=== PATIENT | male | born 1950 | race American Indian/Alaskan Native ===

== ENCOUNTER 2017-03-23 09:53 | Inpatient (IN) | payer MEDICARE ==
--- NOTE | 2017-03-23 11:04 | Emergency Department Report ---
HPI - General Chief Complaint: Medical Clearance Time Seen by Provider: 03/23/17 10:47 - HPI HPI: This is a 24-year-old Afro-[place] male presents to the emergency department by EMS from home with complaint of some transient strokelike symptoms. The patient says that about 845 AM this morning he was trying to open a pill bottle and was unable to do so. He started having paresthesias in the left hand and felt like his left arm became weak. After this he started having bilateral hand tremors and complained of some confusion. By the time EMS arrived about one hour later he had regained all strength and was back at his baseline. During that time he was able to call his fiance who suggested he called EMS. He did not take anything for symptoms prior to presentation. He has a primary care doctor named Dr. Berry. His past medical history includes diabetes, hypertension and hepatitis C with previous liver transplant. Recent travel or sick contacts at home. He denies any history of OH, CVA, PE/DVT. ED Past Medical Hx - Past Medical History Previous Medical History?: Yes Hx Hypertension: Yes Hx Diabetes: Yes Additional medical history: Hepatitis C liver transplant anemia - Surgical History Past Surgical History?: Yes Additional Surgical History: liver transplant - Social History Smoking Status: Never Smoker Substance Use Type: None - Medications Home Medications: Home Medications Medication Instructions Recorded Confirmed Last Taken Type Aspirin [Aspirin BABY CHEW TAB] 81 mg PO DAILY 01/17/14 03/23/17 03/22/17 History Metoprolol [Lopressor TAB] 25 mg PO BID 01/17/14 03/23/17 03/22/17 History Sirolimus [Rapamune] 2 mg PO QAM 01/17/14 03/23/17 03/22/17 History AtorvaSTATin [Lipitor] 20 mg PO DAILY 03/23/17 03/23/17 03/22/17 History Calcium Carbonate/Vitamin D3 600 - 800 mg PO DAILY 03/23/17 03/23/17 03/22/17 History [Calcium 600-Vit D3 800 Tablet] Esomeprazole Magnesium [NexIUM] 40 mg PO QDAY 03/23/17 03/23/17 03/22/17 History Glimepiride [Amaryl] 2 mg PO QAM 03/23/17 03/23/17 03/22/17 History Lisinopril [Zestril] 20 mg PO QDAY 03/23/17 03/23/17 03/22/17 History ED Review of Systems ROS: Stated complaint: POSS TIA Other details as noted in HPI Comment: All other systems reviewed and negative Constitutional: denies: chills, fever Eyes: denies: eye pain, eye discharge, vision change ENT: denies: ear pain, throat pain Respiratory: denies: cough, shortness of breath, wheezing Cardiovascular: denies: chest pain, palpitations Gastrointestinal: denies: abdominal pain, nausea, diarrhea Genitourinary: denies: urgency, dysuria Musculoskeletal: denies: back pain, joint swelling, arthralgia Skin: denies: rash, lesions Neurological: weakness, paresthesias, confusion Physical Exam - Physical Exam Vital Signs: Vital Signs 03/23/17 03/23/17 03/23/17 10:01 10:02 10:03 Temperature Pulse Rate 87 88 Respiratory 14 20 Rate Blood Pressure 130/82 130/82 O2 Sat by Pulse 94 95 Oximetry 03/23/17 03/23/17 10:07 10:09 Temperature 98.4 F Pulse Rate Respiratory 20 Rate Blood Pressure O2 Sat by Pulse 95 Oximetry Physical Exam: GENERAL: The patient is well-developed well-nourished. HEENT: Normocephalic. Atraumatic. Extraocular motions are intact. Patient has moist mucous membranes. Pupils equal reactive to light bilaterally. No nystagmus. NECK: Supple. Trach is midline. CHEST/LUNGS: Clear to auscultation. There is no respiratory distress noted. HEART/CARDIOVASCULAR: Regular. There is no tachycardia. There is no gallop rub or murmur. ABDOMEN: Abdomen is soft, nontender. Patient has normal bowel sounds. There is no abdominal distention. SKIN: There is no rash. There is no edema. There is no diaphoresis. NEURO: The patient is awake, alert, and oriented. The patient is cooperative. The patient has no focal neurologic deficits. The patient has normal speech. Cranial nerves II through XII grossly intact. No pronator drift. No dysmetria. MUSCULOSKELETAL: There is no tenderness or deformity. There is no limitation range of motion. There is no evidence of acute injury. Muscle strength 5 out of 5 for upper and lower [place] bilaterally. Cap refill less than 2 seconds. ED Course Vital Signs 03/23/17 03/23/17 03/23/17 10:01 10:02 10:03 Temperature Pulse Rate 87 88 Respiratory 14 20 Rate Blood Pressure 130/82 130/82 O2 Sat by Pulse 94 95 Oximetry 03/23/17 03/23/17 10:07 10:09 Temperature 98.4 F Pulse Rate Respiratory 20 Rate Blood Pressure O2 Sat by Pulse 95 Oximetry ED Medical Decision Making - Lab Data Result diagrams: 03/23/17 11:25 03/23/17 11:25 - EKG Data -: EKG Interpreted by Me EKG shows normal: sinus rhythm, axis, intervals, QRS complexes, ST-T waves Rate: normal - EKG Data When compared to previous EKG there are: previous EKG unavailable Interpretation: normal EKG - Radiology Data Radiology results: report reviewed CT of the head does not show any acute process including no hemorrhage, mass, shift, diffuse edema or skull fracture. - Medical Decision Making 66-year-old male presents after having some strokelike and/or TIA like symptoms this morning. Upon presentation the patient is awake and alert without any focal, motor or sensory deficits and says he is back at his baseline. He had a CT of the head that did not show any bleed, shift, mass or any acute process. EKG is normal without ST elevation OH, ischemia or dysrhythmia. Patient's labs are mostly unremarkable, however the patient has an elevated first troponin. There is no renal insufficiency. It is still possible that the patient had a TIA but with an elevated troponin in the patient being diabetic it is possible that he had some type of atypical cardiac event that caused his symptoms. Patient will be admitted to the hospital for serial troponins and further evaluation and has been accepted for admission by the hospitalist, Dr. Poole. - Differential Diagnosis TIA, CVA, brain bleed, OH Critical Care Time: No Critical care attestation.: If time is entered above; I have spent that time in minutes in the direct care of this critically ill patient, excluding procedure time. ED Disposition Clinical Impression: Elevated troponin, Paresthesias Diabetes Qualifiers: Diabetes mellitus type: type 1 Diabetes mellitus complication status: with unspecified complications Qualified Code(s): E10.8 - Type 1 diabetes mellitus with unspecified complications HTN (hypertension) Qualifiers: Hypertension type: essential hypertension Qualified Code(s): I10 - Essential ( primary) hypertension Disposition: OP ADMITTED IP TO THIS HOSP Is pt being admited?: Yes Condition: Stable Instructions: Diabetes Mellitus Type 2 in Adults (ED) Referrals: PRIMARY CARE, [Primary Care Provider] - 3-5 Days Time of Disposition: 14:38
--- NOTE | 2017-03-23 11:28 | Cat Scan Report ---
CT HEAD WITHOUT CONTRAST: HISTORY: Dizziness. Serial contiguous axial images were obtained through the cranium. Intravenous contrast material was not administered. The ventricles are normal in size and appearance. There is no mass effect or midline shift. No areas of abnormally increased or decreased attenuation are seen. No mass lesion is seen. The mastoid air cells and visualized portions of the sinuses are normal. IMPRESSION: Cranial CT scan within normal limits.
[2017-03-23 11:47] LABS: Basophils % (Auto) 0.8 % (0.0-1.8); Eosinophils % (Auto) 1.5 % (0.0-4.3); Hematocrit 37.8 % (35.5-45.6); Hemoglobin 12.4 gm/dl (11.8-15.2); Mean Corpuscular HGB Conc 33 % (32-34); Mean Corpuscular Volume 78 fl (84-94); Platelet Count 256 K/mm3 (140-440); Red Blood Count 4.83 M/mm3 (3.65-5.03); White Blood Count 8.3 K/mm3 (4.5-11.0)
[2017-03-23 11:55] LABS: Mean Corpuscular Hemoglobin 26 pg (28-32)
[2017-03-23 12:00] LABS: Alanine Aminotransferase 39 units/L (7-56); Albumin 3.7 g/dL (3.9-5); Albumin/Globulin Ratio 1.4 %; Alkaline Phosphatase 168 units/L (35-129); Anion Gap 17 mmol/L; BUN/Creatinine Ratio 20.71; Bilirubin,Total 0.3 mg/dL (0.1-1.2); Blood Urea Nitrogen 29 mg/dL (9-20); Calcium 9.1 mg/dL (8.4-10.2); Carbon Dioxide 24 mmol/L (22-30); Chloride 106.5 mmol/L (98-107); Glucose 53 mg/dL (75-100); Potassium 4.1 mmol/L (3.6-5.0); Sodium 143 mmol/L (137-145); Total Protein 6.3 g/dL (6.3-8.2)
[2017-03-23 12:11] LABS: Cholesterol 197 mg/dL (50-199); HDL Cholesterol 50 mg/dL (40-59); LDL Cholesterol,Direct 117 mg/dL (50-130); Triglycerides 150 mg/dL (2-149)
--- NOTE | 2017-03-23 12:27 | Admit Criteria Form ---
Admission Criteria Documentation: STROKE: ISCHEMIC Clinical Indications for Admission to Inpatient Care (Place 'X' for any and all applicable criteria): Admission is indicated for ANY ONE of the following(1)(2)(3)(4): [X ]I. Acute stroke Extended stay beyond goal length of stay may be needed for(1)(2) [ ]a) Major deficit or clinical deterioration [ ]b) Hospital-acquired infection (eg, urinary tract infection, pneumonia) [ ]c) Embolic cause of stroke [ ]d) Venous thromboembolism(9) [ ]e) Seizures [ ]f) Bleeding (eg, cerebral) [ ]g) Increased intracranial pressure [ ]h) Comorbidities [ ]i) Surgical intervention The original [facility] content created by [employer] has been revised. The portions of the content which have been revised are identified through the use of italic text or in bold, and [facility] [employer] has neither reviewed nor approved the modified material. All other unmodified content is copyright [facility]. Please see references footnoted in the original [facility] edition 2016 Admission Criteria Met: Yes
--- NOTE | 2017-03-23 12:32 | History and Physical Report ---
History of Present Illness Chief complaint: My left side is weak History of present illness: 66 YO Male with DM, HTN, HCV S/P liver Transplant presents to ED for evaluation. Pt states that he experienced left sided weakness this morning around 0845 hrs. Pt states that he was attempting to open a bottle of pills but did not have the strength to do so. Pt states that his left arm and hand were weak, and he was unable to do anything with his left hand and arm. Pt subsequently became confused. EMS notified. Pt states that symptoms totally resolved prior to EMS arrival. Pt denies fever, chills, CP, Palpitations, NVD, syncope, vertigo, headache, seizures, head trauma, loss of bowel or bladder continence, prolonged travel, immobility, individual/family history of DVT/PE, leg pain, calf pain, cough, or recent ill contacts. Past History Past Medical History: diabetes, hepatitis, hypertension Past Surgical History: Other (liver transplant) Social history: . denies: smoking, alcohol abuse, prescription drug abuse Family history: diabetes, hypertension Medications and Allergies Allergies Allergy/AdvReac Type Severity Reaction Status Date / Time No Known Allergies Allergy Unverified 09/29/13 13:59 Home Medications Medication Instructions Recorded Confirmed Last Taken Type Aspirin [Aspirin BABY CHEW TAB] 81 mg PO DAILY 01/17/14 03/23/17 03/22/17 History Metoprolol [Lopressor TAB] 25 mg PO BID 01/17/14 03/23/17 03/22/17 History Sirolimus [Rapamune] 2 mg PO QAM 01/17/14 03/23/17 03/22/17 History AtorvaSTATin [Lipitor] 20 mg PO DAILY 03/23/17 03/23/17 03/22/17 History Calcium Carbonate/Vitamin D3 600 - 800 mg PO DAILY 03/23/17 03/23/17 03/22/17 History [Calcium 600-Vit D3 800 Tablet] Esomeprazole Magnesium [NexIUM] 40 mg PO QDAY 03/23/17 03/23/17 03/22/17 History Glimepiride [Amaryl] 2 mg PO QAM 03/23/17 03/23/17 03/22/17 History Lisinopril [Zestril] 20 mg PO QDAY 03/23/17 03/23/17 03/22/17 History Review of Systems All systems: negative Constitutional: weakness Exam - Constitutional Vitals: Temp Pulse Resp BP Pulse Ox 98.4 F 72 17 133/77 98 03/23/17 10:07 03/23/17 11:00 03/23/17 11:00 03/23/17 11:00 03/23/17 11:00 General appearance: Present: no acute distress, well-nourished - EENT Eyes: Present: PERRL ENT: hearing intact, clear oral mucosa - Neck Neck: Present: supple, normal ROM - Respiratory Respiratory effort: normal Respiratory: bilateral: CTA - Cardiovascular Heart Sounds: Present: S1 & S2. Absent: rub, click - Extremities Extremities: pulses symmetrical, No edema Peripheral Pulses: within normal limits - Abdominal General gastrointestinal: Present: soft, non-tender, non-distended, normal bowel sounds Male genitourinary: Present: normal - Integumentary Integumentary: Present: clear, warm, dry - Musculoskeletal Musculoskeletal: gait normal, strength equal bilaterally - Psychiatric Psychiatric: appropriate mood/affect, intact judgment & insight - Neurologic Neurologic: CNII-XII intact, moves all extremities Results - Labs CBC & Chem 7: 03/23/17 11:25 03/23/17 11:25 Labs: Abnormal lab results 03/23/17 03/23/17 Range/Units 11:25 11:25 MCV 78 L (84-94) fl MCH 26 L (28-32) pg [place] % (Auto) 8.9 H (0.0-7.3) % Seg Neutrophils % 74.5 H (40.0-70.0) % BUN 29 H (9-20) mg/dL Glucose 53 L (75-100) mg/dL Alkaline Phosphatase 168 H (35-129) units/L Troponin T 0.044 H (0.00-0.029) ng/mL Albumin 3.7 L (3.9-5) g/dL Triglycerides 150 H (2-149) mg/dL Assessment and Plan - Patient Problems (1) CVA (cerebral vascular accident) Current Visit: Yes Status: Acute Qualifiers: CVA mechanism: C Precerebral and cerebral artery: P Laterality of affected vessel: L Plan to address problem: Stroke Protocol: MRI/MRA brain, Echo, carotid doppler, PT/OT/Speech therapy. (2) Diabetes Current Visit: Yes Status: Acute Qualifiers: Diabetes mellitus type: D Diabetes mellitus complication status: D Diabetes mellitus complication detail: D Diabetic retinopathy severity: D Proliferative retinopathy type: P Diabetes mellitus macular edema: D Diabetes mellitus assisted insulin use: D Laterality: L Chronic kidney disease stage: C Plan to address problem: ADA diet, insulin, accu check (3) HTN (hypertension) Current Visit: Yes Status: Acute Qualifiers: Hypertension type: H Plan to address problem: Monitor bp q shift, resume current therapy (4) DVT prophylaxis Current Visit: Yes Status: Acute
[2017-03-23] MEDS ORDERED: TYLENOL PO PRN ×3 (12:34→12:58)
[2017-03-23] MEDS ORDERED: ZOFRAN IV PRN ×2 (12:34→12:39)
[2017-03-23] MEDS ORDERED: MILK OF MAGNESIA PO PRN ×2 (12:34→12:39)
[2017-03-23] MEDS ORDERED: DULCOLAX PR PRN ×2 (12:34→12:39)
[2017-03-23] MEDS ORDERED: REGLAN PO PRN (12:39)
[2017-03-23] MEDS ORDERED: D50W (25GM) IV PRN (12:39)
[2017-03-23] MEDS ORDERED: SODIUM CHLORIDE FLUSH SYRINGE 10 ML IV PRN (12:39)
[2017-03-23] MEDS ORDERED: PHENERGAN PR PRN (12:39)
--- NOTE | 2017-03-23 15:33 | Magnetic Resonance Report ---
MRI of the brain without contrast. History: Stroke. Procedure: Routine brain protocol without contrast. Findings: The posterior fossa is normal. The ventricles are normal in size and contour there are no masses or extra-axial collections. There are bilateral areas of hyperintense T2 and flair signal in the periventricular white matter, fairly symmetrical in distribution. There is no restricted diffusion. The pituitary gland is normal. The visualized extra cranial structures are unremarkable. Impression: No acute findings. Chronic periventricular microangiopathic changes are noted.
--- NOTE | 2017-03-23 15:35 | Magnetic Resonance Report ---
MRA of the [place]. History: Stroke. Procedure: 3-D [id number] technique. Findings: The visualized distal internal carotid arteries appear normal. The anterior and middle cerebral arteries appear normal. The vertebral and basilar arteries are patent. Posterior cerebral arteries are unremarkable. There is no evidence of aneurysm or AVM. Impression: Negative study.
[2017-03-23] MEDS: NOVOLOG SUB-Q SCH ×2 (18:01→21:37)
[2017-03-23] MEDS: DUONEB 0.5 MG-3 MG/3 ML SOLN IH SCH ×2 (18:35→21:45)
[2017-03-23] MEDS: LOPRESSOR PO SCH (21:34)
[2017-03-23] MEDS ORDERED: ZOCOR PO SCH (22:00)
[2017-03-24] MEDS: DUONEB 0.5 MG-3 MG/3 ML SOLN IH SCH ×3 (02:04→13:22)
[2017-03-24 08:34] VITALS: BP 141/82
[2017-03-24] MEDS: NOVOLOG SUB-Q SCH (08:39)
[2017-03-24 09:09] LABS: Creatine Kinase MB 1.2 ng/mL (0.0-4.0)
[2017-03-24] MEDS: LOPRESSOR PO SCH (09:41)
[2017-03-24] MEDS ORDERED: BABY ASPIRIN PO SCH (10:00)
[2017-03-24] MEDS ORDERED: PROTONIX PO SCH (10:00)
[2017-03-24] MEDS ORDERED: RAPAMUNE PO SCH ×2 (10:00→11:00)
[2017-03-24] MEDS ORDERED: SIROLIMUS 2 MG PO SCH (10:00)
[2017-03-24] MEDS ORDERED: NON-FORMULARY (Esomeprazole Magnesium [Nexium] 40 MG) PO SCH (10:00)
[2017-03-24] MEDS ORDERED: ZESTRIL PO SCH (10:00)
--- NOTE | 2017-03-24 10:33 | Discharge Summary ---
Providers - Providers Date of Admission: 03/23/17 12:35 Date of discharge: 03/24/17 Attending physician: JOSAFAT SHABAZZ 03/23/17 12:39 Occupational Therapy Evaluate and Treat [CONS] Routine Comment: Reason For Exam: Neuro deficits Physical Therapy Evaluation and Treat [CONS] Routine Comment: Reason For Exam: Neuro deficits 03/23/17 12:41 Speech Therapy Evaluation and Treat [CONS] Routine Reason For Exam: swallow eval 03/24/17 09:32 Consult to Physician [CONS] Routine Consulting Provider: SHARYN LEAL Reason For Exam: Elevated Troponin Place consult to:: Dr. Leal Notified:: milad Was contact made?: Yes Time called:: 09:50 Primary care physician: [employer] Hospitalization Condition: Stable - Discharge Diagnoses (1) TIA (transient ischemic attack) Status: Acute Qualifiers: Transient cerebral ischemia type: T (2) Diabetes mellitus type 2 in obese Status: Acute (3) Elevated troponin Status: Acute (4) HTN (hypertension) Status: Acute Qualifiers: Hypertension type: essential hypertension Qualified Code(s): I10 - Essential (primary) hypertension Exam - Constitutional Vitals: Temp Pulse Resp BP Pulse Ox 97.5 F L 67 20 141/82 96 03/24/17 08:33 03/24/17 08:33 03/24/17 10:02 03/24/17 08:33 03/24/17 08:33 Plan Activity: advance as tolerated Diet: low fat, low cholesterol, low salt, diabetic Additional Instructions: 1. Follow up with primary care physician in one week Follow up with: PRIMARY CARE, [Primary Care Provider] - 3-5 Days Prescriptions: Aspirin EC [Aspirin Enteric Coated TAB] 325 mg PO QDAY #30 tablet.
--- NOTE | 2017-03-24 11:04 | Consultation ---
History of Present Illness Consult date: 03/24/17 Consult reason: elevated troponin History of present illness: This is a 66yr old male with a history of Hypertension, Diabetes Mellitus, Hepatitis C virus, and Liver transplant done in 2004. He presented to this hospital with TIA like symptoms. Patient reports left upper extremity numbness, weakness with confusion that spontaneously resolved. EMS was called and the patient was brought in for evaluation. On presentation to the ED the patient was back to baseline. There were no neuro deficits. CT of the head did not show any acute process. No acute findings on brain MRI. Cardiac consultation is requested for mild elevated troponin. Cardiac enzymes shows a normal CK/MB of 1.2 and normal relative index of 1.4. His ECG is benign , a normal sinus rhythm. Patient denies chest pain and shortness of breath. There is no cardiac history or recent cardiac workup. Past History Past Medical History: diabetes, hepatitis, hypertension Past Surgical History: Other (liver transplant) Social history: . denies: smoking, alcohol abuse, prescription drug abuse Family history: diabetes, hypertension Medications and Allergies Allergies Allergy/AdvReac Type Severity Reaction Status Date / Time No Known Allergies Allergy Unverified 09/29/13 13:59 Home Medications Medication Instructions Recorded Confirmed Last Taken Type Metoprolol [Lopressor TAB] 25 mg PO BID 01/17/14 03/23/17 03/22/17 History Sirolimus [Rapamune] 2 mg PO QAM 01/17/14 03/23/17 03/22/17 History AtorvaSTATin [Lipitor] 20 mg PO DAILY 03/23/17 03/23/17 03/22/17 History Calcium Carbonate/Vitamin D3 600 - 800 mg PO DAILY 03/23/17 03/23/17 03/22/17 History [Calcium 600-Vit D3 800 Tablet] Esomeprazole Magnesium [NexIUM] 40 mg PO QDAY 03/23/17 03/23/17 03/22/17 History Glimepiride [Amaryl] 2 mg PO QAM 03/23/17 03/23/17 03/22/17 History Lisinopril [Zestril TAB] 20 mg PO QDAY 03/23/17 03/23/17 03/22/17 History Aspirin EC [Aspirin Enteric Coated 325 mg PO QDAY #30 tablet. 03/24/17 Unknown Rx TAB] Active Meds: Active Medications Acetaminophen (Tylenol) 650 mg PO Q4H PRN PRN Reason: Pain, Mild (1-3) Acetaminophen (Tylenol) 650 mg PO Q4H PRN PRN Reason: Fever >100.5/MILIAN Albuterol/Ipratropium (Duoneb 0.5 Mg-3 Mg/3 Ml Soln) 1 ampul IH Q6HRT [facility] Last Admin: 03/24/17 08:01 Dose: 1 ampul Aspirin (Baby Aspirin) 81 mg PO DAILY [facility] Last Admin: 03/24/17 09:41 Dose: 81 mg Atorvastatin Calcium (Lipitor) 20 mg PO QHS [facility] Last Admin: 03/23/17 21:34 Dose: 20 mg Bisacodyl (Dulcolax) 10 mg GA QDAY PRN PRN Reason: Constipation Dextrose (D50w (25gm)) 50 ml IV PRN PRN PRN Reason: Hypoglycemia Insulin Aspart (Novolog) 0 units SUB-Q ACHS [facility] PRN Reason: Protocol Last Admin: 03/24/17 08:39 Dose: Not Given Lisinopril (Zestril) 20 mg PO QDAY [facility] Last Admin: 03/24/17 09:41 Dose: 20 mg Magnesium Hydroxide (Milk Of Magnesia) 30 ml PO Q4H PRN PRN Reason: Constipation Metoclopramide HCl (Reglan) 10 mg PO Q6H PRN PRN Reason: Nausea And Vomiting Metoprolol Tartrate (Lopressor) 25 mg PO BID [facility] Last Admin: 03/24/17 09:41 Dose: 25 mg Ondansetron HCl (Zofran) 4 mg IV Q8H PRN PRN Reason: N/V unrelieved by Reglan Pantoprazole Sodium (Protonix) 40 mg PO DAILY [facility] Last Admin: 03/24/17 09:41 Dose: 40 mg Promethazine HCl (Phenergan) 25 mg GA Q6H PRN PRN Reason: Nausea And Vomiting Sirolimus (Rapamune (Nf)) 2 mg PO DAILY [facility] Last Admin: 03/24/17 10:48 Dose: 2 mg Sodium Chloride (Sodium Chloride Flush Syringe 10 Ml) 10 ml IV PRN PRN PRN Reason: LINE FLUSH Physical Examination Vital Signs Pulse Ox 94 03/23/17 10:01 General appearance: no acute distress HEENT: Positive: PERRL Neck: Positive: trachea midline Cardiac: Positive: Reg Rate and Rhythm Lungs: Positive: Normal Breath Sounds Neuro: Positive: Grossly Intact Extremities: Absent: edema Results 03/23/17 11:25 03/23/17 11:25 Cardiac Enzymes 03/24/17 Range/Units 07:48 CK-MB (CK-2) 1.2 (0.0-4.0) ng/mL EKG interpretations - EKG Sinus rhythms and dysrhythmias: sinus rhythm Assessment and Plan Elevated troponin, nonspecific Hypertension Diabetes mellitus Prior Liver transplant
--- NOTE | 2017-03-29 08:02 | Vascular Lab Report ---
CAROTID DUPLEX STUDY: RIGHT PSVEDV CCA PROX:[id number] CCA DIST: 6615 ICA PROX: 6718 ICA MID: 6217 ICA DIST:6624 ECA: 28331 VERT: ` 32 10 LEFT PSVEDV CCA PROX:[id number] CCA DIST: 8520 ICA PROX: 7416 ICA MID: 4512 ICA DIST: 6925 ECA: 8710 VERT: 64 18 REASON FOR EXAM: Stroke. COMMENTS ON THE RIGHT: Doppler frequency analysis is consistent with 16 to 49 percent diameter reduction of the internal carotid artery. Minimal amount of plaque is seen. The common carotid artery is patent. The external carotid artery is patent. The vertebral artery has antegrade flow. COMMENTS ON THE LEFT: Doppler frequency analysis is consistent with 16 to 49 percent diameter reduction of the internal carotid artery. Minimal amount of plaque is seen. The common carotid artery is patent. The external carotid artery is patent. The vertebral artery has antegrade flow. IMPRESSION: Less than 50% diameter reduction in the internal carotid arteries bilaterally. Consider repeat carotid artery duplex in 12 months.
== END 2017-03-24 13:29 | disposition home or self-care (01) | DRG 69 ==
LOC: ED 09:53 → 4A 12:35
PROVIDERS: ADMIT Internal Medicine; ATTEND Internal Medicine
DX: G45.9 Transient cerebral ischemic attack, unspecified (principal); Z94.4 Liver transplant status; I10 Essential (primary) hypertension; B19.20 Unspecified viral hepatitis C without hepatic coma; Z79.82 Long term (current) use of aspirin; Z83.3 Family history of diabetes mellitus; Z82.49 Family history of ischemic heart disease and other diseases of the circulatory system; E11.69 Type 2 diabetes mellitus with other specified complication; E66.9 Obesity, unspecified; Z68.31 Body mass index [BMI] 31.0-31.9, adult
CPT/HCPCS: 36415; 70450; 70544; 70551; 80053; 80061; 82550; 82553; 82962; 84443; 84484; 85025; 93005; 93010; 93306; 93880; 94640; 94760; A9270-GY; G8987-GO; G8988-GO; G8989-GO; G8996-GN; G8997-GN; G8998-GN; J7520

== ENCOUNTER 2018-12-11 23:56 | Emergency (ER) | payer MEDICARE ==
[2018-12-12] MEDS ORDERED: MORPHINE IV ONE (00:09)
--- NOTE | 2018-12-12 00:14 | Emergency Department Report ---
HPI - General Time Seen by Provider: 12/12/18 00:02 - HPI HPI: 67-year-old -[place] male presents to the emergency department via EMS from home with complaint of right knee and lower extremity pain that has been going on since about 2 PM with the patient had an accidental fall onto the right leg while working out. 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 He has a past medical history also includes coronary artery disease with [place]. Patient attempted to treat his discomfort with some gabapentin without any relief. He has moderate swelling to the right leg and knee. ED Past Medical Hx - Past Medical History Hx Hypertension: Yes Hx Congestive Heart Failure: No Hx Diabetes: Yes Hx Asthma: No Hx COPD: No Additional medical history: Hepatitis C liver transplant anemia - Surgical History Additional Surgical History: liver transplant - Social History Smoking Status: Never Smoker - Medications Home Medications: Home Medications Medication Instructions Recorded Confirmed Last Taken Type RX: Metoprolol [Lopressor TAB] 25 mg PO BID 01/17/14 03/23/17 03/22/17 History RX: Sirolimus [Rapamune] 2 mg PO QAM 01/17/14 03/23/17 03/22/17 History RX: AtorvaSTATin [Lipitor] 20 mg PO DAILY 03/23/17 03/23/17 03/22/17 History RX: Calcium Carbonate/Vitamin D3 600 - 800 mg PO DAILY 03/23/17 03/23/17 03/22/17 History [Calcium 600-Vit D3 800 Tablet] RX: Esomeprazole Magnesium [NexIUM] 40 mg PO QDAY 03/23/17 03/23/17 03/22/17 History RX: Glimepiride [Amaryl] 2 mg PO QAM 03/23/17 03/23/17 03/22/17 History RX: Lisinopril [Zestril TAB] 20 mg PO QDAY 03/23/17 03/23/17 03/22/17 History RX: Aspirin EC [Aspirin Enteric 325 mg PO QDAY #30 tablet. 03/24/17 Unknown Rx Coated TAB] oxyCODONE /ACETAMINOPHEN [Percocet 1 tab PO Q6HR PRN #15 tablet 12/12/18 Unknown Rx 5/325] ED Review of Systems ROS: Stated complaint: SWOLLEN LOWER RT LEG Other details as noted in HPI Comment: All other systems reviewed and negative Constitutional: denies: chills, fever Eyes: denies: eye pain, eye discharge, vision change ENT: denies: ear pain, throat pain Respiratory: denies: cough, shortness of breath, wheezing Cardiovascular: edema. denies: chest pain, palpitations Gastrointestinal: denies: abdominal pain, nausea, diarrhea Genitourinary: denies: urgency, dysuria Musculoskeletal: joint swelling, arthralgia Skin: denies: rash, lesions Neurological: denies: headache, weakness Physical Exam - Physical Exam Physical Exam: GENERAL: The patient is well-developed well-nourished. HEENT: Normocephalic. Atraumatic. Patient has moist mucous membranes. EYES: Extraocular motions are intact. Pupils are equal and reactive to light bilaterally. NECK: Supple. Trachea is midline. CHEST/LUNGS: Clear to auscultation. There is no respiratory distress noted. HEART/CARDIOVASCULAR: Regular. There is no tachycardia. There is no obvious murmur. ABDOMEN: Abdomen is soft, nontender. Patient has normal bowel sounds. There is no abdominal distention. SKIN: There is moderate nonpitting swelling to the distal right lower extremity around the knee and distal femur and the amputation. There is no erythema or warmth or fluctuance. NEURO: The patient is awake, alert, and oriented. The patient is cooperative. The patient has no focal neurologic deficits. The patient has normal speech. MUSCULOSKELETAL: Tenderness to palpation to the proximal tib-fib and knee and distal femur of the right lower extremity. ED Course - Consultations Consultation #1: I spoke to the orthopedist association executive, Dr. Quintero, regarding the patient's proximal tibia and distal femur fractures. He agrees with the plan for a splint, nonweightbearing and outpatient follow-up. 12/12/18 04:47 ED Medical Decision Making - Radiology Data Radiology results: report reviewed EXAM: XR KNEE 3V RT HISTORY: right knee pain, fall TECHNIQUE: Three views right knee PRIORS: None. FINDINGS: There is a small fracture extending through the medial cortex of the proximal tibia approximately 2.8 cm from the tibial plateau. There is no displacement of the fracture fragments. There is another cortical disruption along the medial side of the distal femoral diaphysis and also possibly the lateral femoral diaphysis. The bones are demineralized. The knee is normally aligned. There is an a below-knee amputation of the level of the tibial and fibular diaphyses. Soft tissues appear normal. IMPRESSION: Nondisplaced fractures of the distal femur and proximal medial tibia Transcribed By: RK Dictated By: CED ANGELES MD Electronically Authenticated By: CED ANGELES MD Signed Date/Time: 12/12/18 0109 - Medical Decision Making Patient presents with pain to the amputated right lower extremity, knee and distal femur after falling directly on the leg around noon. He has nonpitting swelling and tenderness to palpation. X-rays show distal femur fractures and proximal tibia fracture but appears well aligned. Spoke with the orthopedist who agrees with splint, pain control and outpatient follow-up. The patient was given a few doses of pain medication here and a prescription for home. He was given the orthopedist referral. He will return to the ER with any worsening of his symptoms or any acute distress. - Differential Diagnosis fracture, contusion, dislocation Critical Care Time: No Critical care attestation.: If time is entered above; I have spent that time in minutes in the direct care of this critically ill patient, excluding procedure time. ED Disposition Clinical Impression: Fracture of distal femur Qualifiers: Encounter type: initial encounter Fracture type: closed Fracture morphology: unspecified fracture morphology Laterality: right Qualified Code(s): S72.401A - Unspecified fracture of lower end of right femur, initial encounter for closed fracture Fracture of proximal end of tibia Qualifiers: Encounter type: initial encounter Fracture type: closed Fracture morphology: unspecified fracture morphology Laterality: right Qualified Code(s): S82.101A - Unspecified fracture of upper end of right tibia, initial encounter for closed fracture Disposition: DC-01 TO HOME OR SELFCARE Is pt being admited?: No Condition: Stable Instructions: Leg Fracture (ED) Additional Instructions: Please follow up with an orthopedist early this week. I'm giving a referral for a local orthopedist, Dr. Quintero. Return to the emergency Department with any worsening of your symptoms or any acute distress. You have been prescribed a medication that can be sedating. Therefore, this medication cannot be taken prior to driving, working, being responsible for children, and cannot be mixed with alcohol of any quantity. Prescriptions: oxyCODONE /ACETAMINOPHEN [Percocet 5/325] 1 tab PO Q6HR PRN #15 tablet PRN Reason: Pain Referrals: ELEONORA PRITCHARD [Other] - 3-5 Days BERTHA QUINTERO MD [Staff Physician] - 3-5 Days Time of Disposition: 03:08
--- NOTE | 2018-12-12 01:09 | XRay Report ---
FINAL REPORT EXAM: XR KNEE 3V RT HISTORY: right knee pain, fall TECHNIQUE: Three views right knee PRIORS: None. FINDINGS: There is a small fracture extending through the medial cortex of the proximal tibia approximately 2.8 cm from the tibial plateau. There is no displacement of the fracture fragments. There is another cor tical disruption along the medial side of the distal femoral diaphysis and also possibly the lateral femoral diaphysis. The bones are demineralized. The knee is normally aligned. There is an a below-kne e amputation of the level of the tibial and fibular diaphyses. Soft tissues appear normal. IMPRESSION: Nondisplaced fractures of the distal femur and proximal medial tibia
[2018-12-12] MEDS ORDERED: DILAUDID IV ONE ×2 (01:17→02:58)
[2018-12-12 03:51] VITALS: BP 128/68
== END 2018-12-12 03:51 | disposition home or self-care (01) ==
LOC: ED 23:56
DX: S72.401A Unspecified fracture of lower end of right femur, initial encounter for closed fracture (principal); S82.101A Unspecified fracture of upper end of right tibia, initial encounter for closed fracture; I10 Essential (primary) hypertension; E11.9 Type 2 diabetes mellitus without complications; W18.30XA Fall on same level, unspecified, initial encounter; Y93.89 Activity, other specified; Y92.89 Other specified places as the place of occurrence of the external cause; Y99.8 Other external cause status
CPT/HCPCS: 29505; 73562; 96374; 96375; 96376; 99284; J1170; J2270

== ENCOUNTER 2018-12-13 14:12 | Emergency (ER) | payer MEDICARE ==
--- NOTE | 2018-12-13 14:43 | Emergency Department Report ---
ED Recheck HPI - General Chief Complaint: Extremity Injury, Lower Stated Complaint: REWRAP CAST Time Seen by Provider: 12/13/18 14:38 Source: patient Mode of arrival: Wheelchair Limitations: Physical Limitation - History of Present Illness Initial Comments: Patient is a 67-year-old -[place] male who comes to the ER today stating that his right posterior upper extremity splint fell off. He was seen yesterday after falling at the gym which resulted in a fracture of his distal femur. Note that the patient has a BKA and on that same leg. Patient also states that he was only given 15 Percocet and that will not last him until his appointment on Wednesday. I told the patient that the ER would not continue to dispense prescriptions for his Percocet and that he would need to use them in combination with Tylenol and Motrin to get him through until his appointment on Wednesday. Complaint: other (REPLACE SPLINT) Returns Today for: other (REDO SPLINT) Symptoms Since Prior Visit: no new symptoms Associated Symptoms: none - Related Data Home Medications Medication Instructions Recorded Confirmed Last Taken Metoprolol [Lopressor TAB] 25 mg PO BID 01/17/14 03/23/17 03/22/17 Sirolimus [Rapamune] 2 mg PO QAM 01/17/14 03/23/17 03/22/17 AtorvaSTATin [Lipitor] 20 mg PO DAILY 03/23/17 03/23/17 03/22/17 Calcium Carbonate/Vitamin D3 600 - 800 mg PO DAILY 03/23/17 03/23/17 03/22/17 [Calcium 600-Vit D3 800 Tablet] Esomeprazole Magnesium [NexIUM] 40 mg PO QDAY 03/23/17 03/23/17 03/22/17 Glimepiride [Amaryl] 2 mg PO QAM 03/23/17 03/23/17 03/22/17 Lisinopril [Zestril TAB] 20 mg PO QDAY 03/23/17 03/23/17 03/22/17 Previous Rx's Medication Instructions Recorded Last Taken Type Aspirin EC [Aspirin Enteric Coated 325 mg PO QDAY #30 tablet. 03/24/17 Unknown Rx TAB] oxyCODONE /ACETAMINOPHEN [Percocet 1 tab PO Q6HR PRN #15 tablet 12/12/18 Unknown Rx 5/325] Allergies Allergy/AdvReac Type Severity Reaction Status Date / Time No Known Allergies Allergy Verified 12/12/18 00:12 ED Review of Systems ROS: Stated complaint: REWRAP CAST Other details as noted in HPI Comment: All other systems reviewed and negative Musculoskeletal: other (RLE FEMUR FX- SPLINT FELL OFF) ED Past Medical Hx - Past Medical History Previous Medical History?: Yes Hx Hypertension: Yes Hx Heart Attack/AMI: Yes Hx Congestive Heart Failure: No Hx Diabetes: Yes Hx Asthma: No Hx COPD: No Additional medical history: Hepatitis C liver transplant anemia - Surgical History Past Surgical History?: Yes Hx Coronary Stent: Yes Additional Surgical History: liver transplant. right BKA. amputation of left toes - Social History Smoking Status: Never Smoker Substance Use Type: Prescribed - Medications Home Medications: Home Medications Medication Instructions Recorded Confirmed Last Taken Type Metoprolol [Lopressor TAB] 25 mg PO BID 01/17/14 03/23/17 03/22/17 History Sirolimus [Rapamune] 2 mg PO QAM 01/17/14 03/23/17 03/22/17 History AtorvaSTATin [Lipitor] 20 mg PO DAILY 03/23/17 03/23/17 03/22/17 History Calcium Carbonate/Vitamin D3 600 - 800 mg PO DAILY 03/23/17 03/23/17 03/22/17 History [Calcium 600-Vit D3 800 Tablet] Esomeprazole Magnesium [NexIUM] 40 mg PO QDAY 03/23/17 03/23/17 03/22/17 History Glimepiride [Amaryl] 2 mg PO QAM 03/23/17 03/23/17 03/22/17 History Lisinopril [Zestril TAB] 20 mg PO QDAY 03/23/17 03/23/17 03/22/17 History Aspirin EC [Aspirin Enteric Coated 325 mg PO QDAY #30 tablet.dr 03/24/17 Unknown Rx TAB] oxyCODONE /ACETAMINOPHEN [Percocet 1 tab PO Q6HR PRN #15 tablet 12/12/18 Unknown Rx 5/325] ED Physical Exam - General Limitations: Physical Limitation General appearance: alert - Head Head exam: Present: atraumatic - Eye Eye exam: Present: normal appearance - ENT ENT exam: Present: normal exam - Neck Neck exam: Present: normal inspection - Respiratory Respiratory exam: Present: normal lung sounds bilaterally - Cardiovascular Cardiovascular Exam: Present: regular rate - GI/Abdominal GI/Abdominal exam: Present: soft - Extremities Exam Extremities exam: Present: normal inspection - Back Exam Back exam: Present: normal inspection - Neurological Exam Neurological exam: Present: alert, oriented X3 - Psychiatric Psychiatric exam: Present: normal affect, normal mood - Skin Skin exam: Present: warm, dry ED Course Vital Signs 12/13/18 14:24 Temperature 99.1 F Pulse Rate 75 Respiratory 16 Rate Blood Pressure 121/68 O2 Sat by Pulse 97 Oximetry ED Recheck MDM - Core Measures Measure Exclusions: not indicated - Differential Diagnosis CART REVIEWED AND SPLINT REPLACED - Medical Decision Making NO NEW COMPLAINT Critical care attestation.: If time is entered above; I have spent that time in minutes in the direct care of this critically ill patient, excluding procedure time. ED Disposition Clinical Impression: Fracture of distal femur, Fracture of proximal end of tibia Disposition: TO HOME OR SELFCARE Is pt being admited?: No Does the pt Need Aspirin: No Condition: Stable Additional Instructions: FOLLOW UP WITH MD ON WEDNESDAY SCHEDULED MOTRIN/TYLENOL AND YOUR PERCOCET FOR PAIN ER CAN NOT GIVE ADDITIONAL NARCOTICS FOR INJURY NON WEIGHT BEARING UNTIL SEEN BY ORTHO DO NOT REMOVE SPLINT SPLINT CARE INSTRUCTED Time of Disposition: 14:47
== END 2018-12-13 15:20 | disposition home or self-care (01) ==
LOC: ED 14:12
CPT/HCPCS: 99282